=== PATIENT | male | born 1980 | race American Indian/Alaskan Native ===

== ENCOUNTER 2019-04-22 17:28 | Emergency (ER) | payer MEDICAID ==
[2019-04-22 20:30] VITALS: BP 120/62
[2019-04-22] MEDS ORDERED: XYLOCAINE 2% INFILTRATI ONE ×2 (20:36→20:48)
[2019-04-22] MEDS ORDERED: NACL 0.9% 500 ML IR ONE (20:36)
[2019-04-22] MEDS ORDERED: NACL 0.9% IR ONE (20:46)
[2019-04-22] MEDS ORDERED: TRIPLE ANTIBIOTIC TP ONE (21:49)
[2019-04-22] MEDS ORDERED: ANTIBIOTIC OINT TP STA (21:51)
[2019-04-22] MEDS ORDERED: BOOSTRIX IM ONE (21:51)
--- NOTE | 2019-04-22 21:52 | Emergency Department Report ---
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 He presents to the emergency room with an accidental self- inflicted wound to the distal palmar pointer finger, from a clean knife, at approximately 11:00 AM this morning. He has no other injuries. He has no other complaints. Laceration approximately 1.5-2 cm long. ED Review of Systems ROS: Stated complaint: CUT FINGER Other details as noted in HPI Constitutional: denies: fever Eyes: denies: eye discharge Respiratory: denies: cough Cardiovascular: denies: syncope Gastrointestinal: denies: abdominal pain Skin: other (right pointer finger laceration) Neurological: denies: numbness, paresthesias ED Past Medical Hx - Past Medical History Previous Medical History?: No - Surgical History Past Surgical History?: No - Social History Smoking Status: Never Smoker Substance Use Type: Alcohol Laceration Physical Exam - Exam General: Vital signs noted. No distress. Alert and acting appropriately. S1, S2, regular rate and rhythm. Breath sounds clear to auscultation bilaterally. Extraocular movements intact. Tongue midline. No facial droop. Facial sensation intact to light touch in the V1, V2, V3 distribution bilaterally. 5 and 5 strength in 4 extremities.. Sensation is intact to light touch in 4 extremities. Gait within normal limits. 2+ pulses noted in the bilateral upper, compartments are soft. No tendon deficits noted on the right upper extremity. There is no back tenderness. There is no spinal tenderness. Abdomen soft and benign, with no rebound, guarding or peritoneal signs. Wound Length (cm): 1 (1.5 cm ) Laceration Location: Upper Extremity (right distal palmar / volar aspect of second digit) Laceration Exam: Yes Normal Distal CMS, No Foreign Body, No Exposed Tendon, Vessel, or Nerve, No Tendon Injury ED Course Vital Signs 04/22/19 04/22/19 17:53 20:29 Temperature 97.3 F L Pulse Rate 83 75 Respiratory 18 16 Rate Blood Pressure 140/77 Blood Pressure 120/62 [Left] O2 Sat by Pulse 96 96 Oximetry - Laceration /Wound Repair Right Distal Finger Wound Location: upper extremity Wound Length (cm): 1 (1.5 cm) Wound's Depth, Shape: into muscle, linear Wound Explored: clean Irrigated w/ Saline (ccs): 500 (1.5 cm) Betadine Prep?: Yes Anesthesia: 1% Lidocaine Volume Anesthetic (ccs): 4 Wound Debrided: minimal Wound Repaired With: sutures Suture Size/Type: 5:0 (monofilament) Number of Sutures: 5 Layer Closure?: No Sterile Dressing Applied?: Yes ED Medical Decision Making - Lab Data Vital Signs 04/22/19 04/22/19 17:53 20:29 Temperature 97.3 F L Pulse Rate 83 75 Respiratory 18 16 Rate Blood Pressure 140/77 Blood Pressure 120/62 [Left] O2 Sat by Pulse 96 96 Oximetry - Radiology Data Radiology results: report reviewed, image reviewed X-ray of the right hand is negative for acute disease. - Medical Decision Making Vital Signs 04/22/19 04/22/19 17:53 20:29 Temperature 97.3 F L Pulse Rate 83 75 Respiratory 18 16 Rate Blood Pressure 140/77 Blood Pressure 120/62 [Left] O2 Sat by Pulse 96 96 Oximetry Differential diagnosis, including but not limited to: Simple fingertip laceration Assessment and plan: 38-year-old gentleman with simple fingertip laceration. No foreign bodies noted. No other injuries noted. No obvious neurovascular deficits. Laceration repaired without incident. Appropriate dressing has been applied. Discussed wound care instructions with patient, and return precautions. He verbalizes understanding. He is reliable to follow-up. Critical care attestation.: If time is entered above; I have spent that time in minutes in the direct care of this critically ill patient, excluding procedure time. ED Disposition Clinical Impression: Finger laceration Qualifiers: Encounter type: initial encounter Finger: index finger Damage to nail status: unspecified Foreign body presence: without foreign body Laterality: right Qualified Code(s): S61.210A - Laceration without foreign body of right index finger without damage to nail, initial encounter Disposition: - TO HOME OR SELFCARE Is pt being admited?: No Does the pt Need Aspirin: No Condition: Stable Instructions: Suture Care (ED), Laceration (ED) Additional Instructions: Patient may take [id number] acetaminophen, alternating with ibuprofen, as needed for pain. Patient may wash the finger tip laceration with soap and water at least once every 12-24 hours. Sutures should come out in 5-7 days, the patient may follow up with the primary care doctor, urgent care center, or return to the emergency room for suture removal. Apply bacitracin, [id number], once every 24 hours. Take the antibiotics as directed. Make certain to keep the hand covered if at work. Return to the emergency room right away with redness, pus, streaking, swelling, inability to range the finger, or new, worsening or different symptoms not present on the initial emergency room evaluation. Referrals: SHOAIB BUTLER MD [Primary Care Provider] - 3-5 Days
--- NOTE | 2019-04-22 21:55 | XRay Report ---
PROCEDURE: XR HAND 2V RT TECHNIQUE: RIGHT hand radiographs, PA and lateral views. HISTORY: laceration COMPARISONS: None . FINDINGS: Fracture (s) and/or Dislocation(s): None . Alignment: Normal . Joint space(s): Normal . Soft tissues: Normal . Bone mineralization: Normal . Foreign bodies: None . IMPRESSION: Normal Examination . This document is electronically signed by Adan Roberts MD., April 22 2019 09:52:25 PM ET
== END 2019-04-22 22:20 | disposition home or self-care (01) ==
LOC: ED 17:28
DX: S61.210A Laceration without foreign body of right index finger without damage to nail, initial encounter (principal); W26.0XXA Contact with knife, initial encounter; Y93.89 Activity, other specified; Y92.89 Other specified places as the place of occurrence of the external cause; Y99.8 Other external cause status
CPT/HCPCS: 90471; 90715; 99283; A6250